=== PATIENT | male | born 1985 | race Caucasian/White ===

== ENCOUNTER 2020-02-07 20:45 | Emergency (ER) | payer BC, SELFPAY ==
--- NOTE | ~2020-02-07 | XR_ITS ---
EXAMINATION: XR abdomen/kub 1V DATE: 02/07/2020 22:10 INDICATION: Right flank pain TECHNIQUE: A supine view of the abdomen on 2 radiographs was obtained. COMPARISON: CT dated 02/07/2020 FINDINGS: The proximal right ureteral stone seen on the prior CT along with a smaller 102 mm stones at the inte rpolar regions of both kidneys are unable to be definitively identified on the plain radiograph. Norm al bowel gas pattern. Calcified nodule at the left lung base consistent with old granulomatous diseas e. IMPRESSION: 1. Bilateral nephrolithiasis evident on prior CT is unable to be identified on the current radiograph s likely due to the small size of the calcifications. Reviewed, dictated and finalized at location A. IMPRESSION: 1. Bilateral nephrolithiasis evident on prior CT is unable to be identified on the current radiographs likely due to the small size of the calcifications.
--- NOTE | ~2020-02-07 | CT_ITS ---
EXAMINATION: CT abdomen pelvis wo con DATE: 02/07/2020 22:03 INDICATION: Immature. Right flank pain. TECHNIQUE: Computed tomography (CT) of the abdomen and pelvis was performed without intravenous contr ast. Automated exposure control and iterative reconstruction technique were employed. The dose-length product was 192.26 mGy-cm. COMPARISON: 12/07/2014 FINDINGS: Calcified nodule in the left lower lobe along with calcified left hilar lymph nodes and small splenic calcification, all consistent with old granulomatous disease. Heart size is normal. No pericardial o r pleural effusion. Liver, decompressed gallbladder, pancreas and bilateral adrenal glands are normal . Bilateral nonobstructing nephrolithiasis with 1-2 mm stones in the interpolar regions of both kidne ys. There is a larger, less dense and more amorphous appearing calcification measuring 6 mm in the le ft kidney which could represent an additional stone or milk of calcium within a cyst. 3 mm nonobstruc ting stone at the proximal right ureter. No hydronephrosis. Bladder is normal. There are few scattere d colonic diverticula without adjacent inflammatory change to suggest diverticulitis. Small bowel and appendix are normal. No free intraperitoneal gas or fluid. No pathologically enlarged abdominal or p elvic lymphadenopathy. Mild lumbar dextroscoliosis with moderate spondylosis at the lumbosacral junct ion. IMPRESSION: 1. Bilateral nephrolithiasis with 3 mm nonobstructing stone at the proximal right ureter. Reviewed, dictated and finalized at location A. IMPRESSION: 1. Bilateral nephrolithiasis with 3 mm nonobstructing stone at the proximal rig ht ureter.
[2020-02-07 20:47] VITALS: BP 166/82; PULSE 70; RESP 16; TEMP 36.6; O2SAT 100
--- NOTE | 2020-02-07 21:11 | ED.ABDPAIN ---
HPI - Abdominal Pain General Chief Complaint: Urogenital-Male Stated Complaint: BLOOD IN URINE/ABD PAIN Time Seen by Provider: 02/07/20 20:57 Source: patient Mode of arrival: ambulatory Limitations: no limitations History of Present Illness HPI narrative: 34 yo male with h/o asthma and kidney stone who presents with c/o right flank pain. Patient states he developed right upper abdominal pain radiating to his right flank yesterday. His pain is intermittent , and it has not required him to taken any medication for pain. He also also noticed that he likely has blood in his urine as his urine has been intermittently darker than normal. He denies nausea, vomiting, diarrhea or fever. He denies cough or sob. He reports he has asthma so when he breaths in occasionally he feels like his throat is constricted . MD elicited complaint: flank pain Onset (ago): day(s) (2) Pain Consistency: intermittent Location: R flank Pain scale (0-10): 4 Quality: dull Radiation: RUQ Relieving factors: movement and other (pain is better with laying flat) Related Data Allergies Allergy/AdvReac Type Severity Reaction Status Date / Time No Known Allergies Allergy Verified 04/14/15 16:58 Review of Systems Review of Systems: All systems reviewed & are unremarkable except as noted in HPI and below Constitutional: Constitutional: Denies chills, Denies fever(s) and Denies weakness Cardiovascular: Cardiovascular: Denies chest pain and Denies radiating jaw, neck or arm pain Respiratory: Respiratory: Denies cough and Denies dyspnea Gastrointestinal: Gastrointestinal: Reports abdominal pain, Denies constipation, Denies diarrhea, Denies nausea and Denies vomiting Genitourinary: Genitourinary: Reports oliguria, Denies dysuria, Denies penile discharge and Denies testicular pain Musculoskeletal: Musculoskeletal: Reports back pain [facility] Past Medical History Medical History (Updated 02/08/20 @ 00:00 by Background Daemon) Kidney stones Surgical History Surgical History (Updated 02/07/20 @ 21:16 by Lee Ann Joseph MD) History of surgery on arm Social History Social History Smoking status: Never smoker Alcohol intake: current Exam Const: General: alert Orientation/consciousness: patient oriented x3 HENMT: Head: normocephalic and atraumatic Face and sinus: face symmetric Eyes: Pupils: Equal, round and reactive pupils present EOM: EOMs intact bilaterally Chest: Chest palpation & inspection: normal inspection of the chest Resp: Effort & Inspection: normal respiratory effort Auscultation: clear to auscultation bilaterally GI: Inspection: non-distended GI Palp: Yes Soft to palpation, Yes Tenderness to palpation present (GI) (RLQ) and No Guarding due to palpation present (GI) : General: Yes no CVA tenderness Skin: General skin exam: normal color Course Reevaluation(s) Reevaluation #1: I have discussed with patient Ct scan showing multiple small stones in bilateral kidneys with small proximal ureteral stone. Patient does not want any pain medication. I discussed discharge plan and treatment. He states he understands he will be discharged after finishing IVF. Date: 02/07/20 Time: 22:36 Vital Signs Vital signs: Vital Signs Temperature 98 F 02/07/20 20:47 Pulse Rate 70 02/07/20 20:47 Respiratory Rate 16 02/07/20 20:47 Blood Pressure 166/82 H 02/07/20 20:47 Pulse Oximetry 100 02/07/20 20:47 Temperature 98.4 F 02/07/20 21:12 Pulse Rate 88 02/07/20 22:50 Respiratory Rate 12 02/07/20 22:50 Blood Pressure 127/88 02/07/20 22:50 Pulse Oximetry 98 02/07/20 22:50 MDM - Abdominal Pain Lab Data Attestation: I reviewed the patient's lab results. Result diagrams: 02/07/20 21:22 02/07/20 21:22 Labs: Lab Results 02/07/20 02/07/20 02/07/20 Range/Units 21:22 21:22 21:23 WBC 8.2 (4.5-10.0) K/mm3 RBC 4.99 (4.6-6.20) M/mm3 Hgb 14.7 (14.0-
[2020-02-07 21:12] VITALS: BP 145/80; PULSE 50; RESP 16; TEMP 36.9; O2SAT 100
[2020-02-07 21:31] LABS: Basophils Absolute Auto 0.1 K/mm3 (0.0-0.1); Basophils Percent Auto 0.7 % (0.2-1.2); Eosinophils Absolute Auto 0.2 K/mm3 (0-0.3); Eosinophils Percent Auto 1.8 % (0-4.4); Hematocrit 44.8 % (42.0-52.0); Hemoglobin 14.7 g/dL (14.0-18.0); Immature Granulocyte Absolute 0.03 K/mm3 (0.00-0.031); Immature Granulocyte Percent A 0.4 % (0-0.5); Lymphocytes Absolute Auto 1.72 K/mm3 (0.9-3.2); Mean Corpuscular HGB Conc 32.8 g/dl (32-36); Mean Corpuscular Hemoglobin 29.5 pg (26-34); Mean Corpuscular Volume 89.8 fl (80-100); Mean Platelet Volume 10.4 fl (7.4-10.4); Monocytes Absolute Auto 0.6 K/mm3 (0.1-0.6); Monocytes Percent Auto 7.7 % (2.6-8.5); Neutrophils Absolute Auto 5.6 K/mm3 (1.3-6.7); Neutrophils Percent Auto 68.4 % (45.5-73.1); Platelet Count Result 245 k/mm3 (150-375); Red Blood Count 4.99 M/mm3 (4.6-6.20); Red Cell Distribution Width 11.9 % (11.5-14.5); White Blood Count 8.2 K/mm3 (4.5-10.0)
[2020-02-07 21:36] LABS: Add Urine Microscopic? YES; Amorphous Sediment Urine Few; Appearance Urine Cloudy (Clear); Bacteria Urine Trace /hpf; Bilirubin Urine Negative (Negative); Blood Urine 2+ (Negative); Color Urine Yellow (Yellow); Glucose Urine UA Negative (Negative); Ketones Urine Negative (Negative); Leukocyte Esterase Ur Negative LEU/UL (Negative); Mucus Urine Few /lpf; Nitrate Urine Negative (Negative); Protein Urine 1+ mg/dL (Negative); RBC Urine >75 /hpf (0-2); Specific Grav Ur 1.018 (1.001-1.035); Urobilinogen Urine Negative mg/dL (<2.0); WBC Urine 0-3 /hpf
[2020-02-07 21:43] LABS: Alanine Aminotransferase 14 U/L (4-50); Albumin Level 4.1 g/dL (3.5-5.1); Alkaline Phosphatase 68 U/L (38-126); Aspartate Amino Transferase 26 U/L (17-59); Bilirubin,Total 0.8 mg/dL (0.2-1.3); Blood Urea Nitrogen 9 mg/dL (9-20); Calcium 8.9 mg/dL (8.4-10.2); Carbon Dioxide 30 mmol/L (22-30); Chloride 103 mmol/L (98-107); Estimated CRCL calculation 81 ml/min; Estimated Glomerular Filt Rate > 60; Glucose 90 mg/dL (75-110); Lipase 342 U/L (23-300); Potassium 3.9 mmol/L (3.4-5.0); Sodium 139 mmol/L (137-145)
[2020-02-07] MEDS: LACTATED RINGERS 1,000 ML 999 ML IV CONT (21:59)
--- NOTE | 2020-02-07 22:13 | PC.NURSE ---
[PT BACK FROM CT
[2020-02-07 22:50] VITALS: BP 127/88; PULSE 88; RESP 12; O2SAT 98
[2020-02-07] MEDS: TAMSULOSIN HCL 0.4 MG CAPSULE PO (22:59)
== END 2020-02-07 22:50 | disposition home or self-care (01) ==
PROVIDERS: Emergency Provider General Practice
DX: N20.2 Calculus of kidney with calculus of ureter (principal); Z87.442 Personal history of urinary calculi
CPT/HCPCS: 36415; 74018; 74176; 80053; 81001; 83690; 85025; 96360; 99284; A9270; J7120

== ENCOUNTER 2020-02-11 10:54 | Outpatient (CLI) | payer BC, SELFPAY ==
--- NOTE | ~2020-02-11 | XR_ITS ---
XR abdomen/kub 1V 02/11/2020 11:10 Indication: Right ureteral stone Procedure: KUB Comparison: 02/07/2020 Findings: There is a right ureteral stone at the L2-3 level measuring approximately 4 mm. There are p elvic phleboliths. Bowel gas pattern is nonobstructive. Lung bases unremarkable. Impression: 1: Right proximal ureteral stone at the L2-3 level measuring 4 mm. Reviewed, dictated and finalized at location A. Impression: 1: Right proximal ureteral stone at the L2-3 level measuring 4 mm.
== END 2020-02-11 10:55 | disposition home or self-care (01) ==
LOC: ANHIMG 10:59
PROVIDERS: PCP Family Medicine Sports Medicine; Visit Provider Urology
DX: N20.1 Calculus of ureter (principal)
CPT/HCPCS: 74018

== ENCOUNTER 2020-02-22 10:15 | Outpatient (CLI) | payer BC, SELFPAY ==
--- NOTE | ~2020-02-22 | XR_ITS ---
XR abdomen/kub 1V 02/22/2020 10:29 INDICATION: Right ureteral stone post lithotripsy TECHNIQUE: KUB COMPARISON: 02/11/2020 FINDINGS: Bowel gas pattern is normal. There is no evidence of free air, mass, organomegaly, ascites or obstruction. There are punctate right renal stones. The bones appear intact. IMPRESSION: 1: Right nephrolithiasis. Reviewed, dictated and finalized at location A. IMPRESSION: 1: Right nephrolithiasis.
== END 2020-02-22 10:16 | disposition home or self-care (01) ==
LOC: ANHIMG 10:17
PROVIDERS: PCP Family Medicine Sports Medicine; Visit Provider Urology
DX: N20.1 Calculus of ureter (principal); N20.0 Calculus of kidney
CPT/HCPCS: 74018

== ENCOUNTER 2020-03-22 00:21 | Outpatient (CLI) | payer BC, SELFPAY ==
[2020-03-22 18:06] LABS: SARS-CoV-2 RNA PCR Negative
== END 2020-03-22 00:22 | disposition home or self-care (01) ==
LOC: ANHCOVIDDT 00:21
PROVIDERS: PCP Family Medicine Sports Medicine; Visit Provider Surgery
DX: Z01.812 Encounter for preprocedural laboratory examination (principal); Z20.828 Contact with and (suspected) exposure to other viral communicable diseases
CPT/HCPCS: 87635; C9803; U0003

== ENCOUNTER 2020-03-24 00:44 | Day surgery (SDC) | payer BC, SELFPAY ==
[2020-03-16 11:38] VITALS: BMI 22.4
--- NOTE | 2020-03-24 11:30 | WPDANESEPPF ---
Anes - Initial Pre Proc Eval Procedure: Operation Date: 03/24/20 13:00 Proposed Procedures p Esophagogastroduodenoscopy & Screening Colonoscopy - Singh Rosales DO Date/Time: 03/24/20 11:30 Surgeon: Singh Rosales DO Pre Op Diagnosis: Acid Reflux/ Neoplasm Screening Patient Data Age: 34 Gender: M Height: 1.83 m Weight: 75 kg Allergies Allergy/AdvReac Type Severity Reaction Status Date / Time No Known Allergies Allergy Verified 04/14/15 16:58 Home Medications Medication Instructions Recorded Confirmed Type No Home Medications 03/16/20 03/16/20 History Patient hx anesthesia problems: none Family hx anesthesia problems: none [facility] Past Medical History Medical History (Updated 03/24/20 @ 11:30 by Que Blandon DO) Diverticulitis Kidney stones Surgical History Surgical History (Updated 02/07/20 @ 21:16 by Lee Ann Joseph MD) History of surgery on arm Social History Social History Smoking status: Never smoker Alcohol intake: current Anes - Eval Final PreProcedure Day of Procedure 03/24/20 11:30 Patient weight: normal Heart: regular rate and rhythm Lungs: clear to auscultation and normal air movement Airway: Mallampati scale class II Neurological: alert and oriented Last oral intake: >/= 8 hours ASA classification: II Emergent: no Anesthetic plan: proceed Anesthesia type and monitoring: general GIVS and standard monitoring Informed Consent: The patient's anesthetic plan and its attendant risks and benefits were discussed with the patient/family/POA. Questions were solicited and answers provided to the satisfaction of the patient/family/POA.
[2020-03-24 11:31] VITALS: BP 133/68; PULSE 77; RESP 16; TEMP 37.2; O2SAT 97
[2020-03-24] MEDS: LACTATED RINGERS 1,000 ML 150 ML IV CONT (11:35)
[2020-03-24] MEDS: BENZOCAINE (*SP) 60 ML SPRAY CAN (HURRICAINE) 1 SPRAY MUCOUS MEM (12:03)
[2020-03-24 12:45] VITALS: BP 95/59; PULSE 66; RESP 18; O2SAT 98
--- NOTE | 2020-03-24 12:48 | PM.IMHP ---
H&P: HPI History of Present Illness Chief complaint: Acid Reflux/ Neoplasm Screening Narrative: Felipe Davidson is a 34 year old male with hx of rectal polyp and freqent GERD. He has noticed heart burn and reflux at night. He had a colonoscopy 5 years ago which showed a rectal polyp. Denies rectal bleeding or fam hx colon cancer. Review of Systems Review of Systems: All systems reviewed & are unremarkable except as noted in HPI and below PMFSH Past Medical History Medical History Diverticulitis Kidney stones Surgical History Surgical History History of surgery on arm Social History Social History Smoking status: Never smoker Alcohol intake: current Meds Home Medications and Allergies Home Medications Medication Instructions Recorded Confirmed Type No Home Medications 03/16/20 03/16/20 History Allergies Allergy/AdvReac Type Severity Reaction Status Date / Time No Known Allergies Allergy Verified 04/14/15 16:58 Vital Signs Vital Signs - 24 hr 03/24/20 11:31 Temperature 37.2 C Pulse Rate 77 Respiratory Rate 16 Blood Pressure 133/68 Pulse Oximetry 97 Exam Const: General: alert; No acute distress Orientation/consciousness: patient oriented x3 Limitations: no limitations HENMT: Head: normocephalic and atraumatic Ears: hearing grossly normal bilaterally General nose exam: Normal external nose present and Normal nares present Mouth: Yes Normal oral and palatal mucosa present and Yes moist mucous membranes Eyes: General: appearance normal, both eyes and all related structures Conjunctivae: conjunctivae normal Sclera: sclerae normal Pupils: Equal, round and reactive pupils present EOM: EOMs intact bilaterally Neck: Neck: normal visual inspection, full ROM, no lymphadenopathy, supple and no JVD Lymphatic: no lymphadenopathy noted Chest: Chest palpation & inspection: normal inspection of the chest Resp: Effort & Inspection: normal respiratory effort and able to speak in complete sentences Auscultation: clear to auscultation bilaterally Percussion: percussion normal Cardio: Jugular venous distension: no JVD Rate: regular rate Rhythm: regular rhythm Heart sounds: S1 normal heart sound present and S2 normal heart sound present Peripheral pulses: Peripheral pulses 2+ throughout GI: Inspection: normal to inspection GI Palp: No abdominal tenderness, Yes Soft to palpation, No Guarding due to palpation present (GI), No Hernia present and No Rebound tenderness present Percussion: Yes normal to percussion Auscultation: normal bowel sounds : General: Yes no CVA tenderness Back/Spine/Pelvis: Back: no CVA tenderness Skin: General skin exam: normal color and dry skin Neuro: General: patient oriented x3, gait normal, moves all extremities, no focal motor deficits and CN's II-XI intact bilaterally Cranial nerves: Yes Equal, round and reactive pupils present Speech: normal speech Extrem: General: normal to inspection and capillary refill normal Assessment and Plan Assessment and plan (1) GERD (gastroesophageal reflux disease): Code(s): K21.9 - Gastro-esophageal reflux disease without esophagitis Status: Acute Assessment and Plan: I have recommended EGD and Colonoscopy. I have discussed the procedure, risks, benefits, and alternatives with the patient. All questions answered. (2) Hx of rectal polypectomy: Code(s): Z98.890 - Other specified postprocedural states; Z87.19 - Personal history of other diseases of the digestive system Status: Acute
[2020-03-24 12:55] VITALS: BP 98/64; PULSE 54; RESP 20; O2SAT 97
[2020-03-24 13:05] VITALS: BP 107/74; PULSE 54; RESP 20; O2SAT 98
== END 2020-03-24 13:37 | disposition home or self-care (01) ==
PROVIDERS: PCP Family Medicine Sports Medicine; Visit Provider Surgery
PROC: 0DJ08ZZ Inspection of Upper Intestinal Tract, Via Natural or Artificial Opening Endoscopic (ICD-10-PCS; CPT 43235; principal; 2020-03-24 13:00)
DX: Z12.11 Encounter for screening for malignant neoplasm of colon (principal); D12.0 Benign neoplasm of cecum; D12.5 Benign neoplasm of sigmoid colon; K57.30 Diverticulosis of large intestine without perforation or abscess without bleeding; K21.0 Gastro-esophageal reflux disease with esophagitis
CPT/HCPCS: 45385; 45380; 43239; 87081; 88305; 88313; J2704; J7120

== ENCOUNTER 2021-11-02 12:00 | Emergency (ER) | payer BC, SELFPAY ==
[2021-11-02 12:07] VITALS: BP 130/79; PULSE 72; RESP 16; TEMP 36.6; O2SAT 100
--- NOTE | 2021-11-02 12:44 | ED.URI ---
HPI - URI/Sore Throat General Chief Complaint: Upper Respiratory Infection Stated Complaint: ear pain cough and chest tight Time Seen by Provider: 11/02/21 12:16 Source: patient and RN notes reviewed Mode of arrival: ambulatory Limitations: no limitations History of Present Illness HPI Narrative: Patient presents today complaining of right ear pain, fever, sweats, cough, dizziness. Symptoms have been present for 5 days and seem to be worsening. Denies shortness of breath or chest pain. He has been taking DayQuil and Tylenol without much relief. Patient also started a Z-Nguyễn 5 days ago and states that that has not helped with his symptoms either. Denies any known exposures. He has been vaccinated against influenza and COVID-19. MD elicited complaint: fever, cough and other (Ear pain) Related Data Allergies Allergy/AdvReac Type Severity Reaction Status Date / Time No Known Allergies Allergy Verified 05/17/20 10:37 Review of Systems Review of Systems: CONSTITUTIONAL: Denies body aches, chills.+ Fever, sweats EYES: Denies visual changes, redness, or discharge. ENT: Denies rhinorrhea, congestion, sore throat. + Ear pain. CARDIOVASCULAR: Denies chest pain, palpitations, or edema. RESPIRATORY: Denies dyspnea.+ Cough GASTROINTESTINAL: Denies abdominal pain, nausea, vomiting, or diarrhea. GENITOURINARY: Denies dysuria or hematuria. SKIN: Denies rash, itching, or wounds. MUSCULOSKELETAL: Denies back pain, joint pain, or myalgia. NEUROLOGIC: Denies headache, numbness, tingling, or weakness.+ Dizziness PSYCH: Denies depression or anxiety. [facility] Past Medical History Medical History Diverticulitis Kidney stones Surgical History Surgical History History of surgery on arm Social History Social History Smoking status: Never smoker Alcohol intake: current Comments At time of signature, I have reviewed and agree with nursing past medical, surgical, social and family history unless otherwise noted. Please see nursing chart for further information. There is no relevant family history pertinent to the presenting complaint Exam Narrative: GENERAL: Mildly ill-appearing, well-nourished, and in no acute distress. HEAD: Normocephalic, atraumatic. EYES: EOMI. No redness or drainage. Conjunctivae normal. ENT: Mucous membranes pink and moist. Nares clear. No rhinorrhea. Left TM normal. Right TM slightly injected. Throat normal. Uvula midline. NECK: Normal AROM. Supple. No lymphadenopathy. CHEST: No respiratory distress. Clear to auscultation. HEART: Regular rate and rhythm. No murmur appreciated. Normal peripheral pulses. EXTREMITIES: Normal range of motion. No edema. SKIN: Warm, dry, no rash. Capillary refill normal. Normal skin turgor. NEURO: No focal deficits. Alert and oriented x3. Gait steady. PSYCH: Normal affect. No signs of depression or anxiety. Course Course Level of Care: Express Care Visit Vital Signs Vital signs: Vital Signs Temperature 97.9 F 11/02/21 12:07 Pulse Rate 72 11/02/21 12:07 Respiratory Rate 16 11/02/21 12:07 Blood Pressure 130/79 11/02/21 12:07 Pulse Oximetry 100 11/02/21 12:07 Temperature 97.9 F 11/02/21 12:07 Pulse Rate 72 11/02/21 12:07 Respiratory Rate 16 11/02/21 12:07 Blood Pressure 130/79 11/02/21 12:07 Pulse Oximetry 100 11/02/21 12:07 Reviewed. Pt has been instructed to follow up with his PCP regarding his elevated blood pressure today. MDM - URI/Sore Throat Differential Diagnosis Differential diagnosis: Likely upper respiratory infection, viral infection, influenza and other (COVID-19) Lab Data Attestation: I reviewed the patient's lab results. Labs: Lab Results 11/02/21 Range/Units 12:26 POC SARS CoV-2 Ag Positive (Negative) Influenza A Scr
== END 2021-11-02 12:50 | disposition home or self-care (01) ==
PROVIDERS: Emergency Provider Nurse Practitioner; PCP Family Medicine Sports Medicine
DX: U07.1 COVID-19 (principal)
CPT/HCPCS: 87426; 87804; 99213; C9803; G0463

== ENCOUNTER 2022-07-26 01:27 | Day surgery (SDC) | payer BC, SELFPAY ==
[2022-07-19 13:03] VITALS: BMI 23.3
--- NOTE | 2022-07-19 13:10 | PC.NURSE ---
Report to the Outpatient Waiting Room, entrance under the green pavilion located off [facility], at time 0730 on date 07/26/22. OR Time: 0930. Time changes happen often and if your time is changed the preop area will call you the afternoon before. - You and your visitor will be asked to self-screen and do not enter if you have any COVID symptoms. - Only one visitor and NO children visitors are allowed at this time. - The patient visitor is requested to leave or wait in car when not with patient due to restrictions. - A mask is required within the hospital. Patients may have clear liquids (water, carbonated beverages, clear teas, apple juice) until 3 hours prior to surgery with a maximum of 20 ounces. - No food from midnight until time of surgery Take the following medications with a SIP of water the morning of surgery: N/A Medications to discontinue per physician: N/A Date to take last dose: N/A Please no make-up, nail portuguese, hairspray, perfume, deodorant, or body powder the day of surgery. No jewelry (including any body piercings) or valuables the day of surgery, leave them at home. Please take a shower or bath the night before, or the morning of, surgery with an antibacterial soap. Wear comfortable, loose fitting clothing. - Jewelry must be removed prior to entering the operating room. Rings and piercings that are not removed may be cut off. - The hospital will not accept responsibility for valuables. - Please leave all valuables, including medications, at home the day of surgery. If you are going home after surgery, a licensed pile driver operator barge mounted must drive you home. - NO public transportation without another adult. - We recommend that an adult stay with you for 24 hours following discharge. - We also recommend that you do not drive, make important decision, drink alcoholic beverages, or take any drugs that were not prescribed by your health care provider for at least 24 hours after your discharge time. Follow any additional instructions given to you from your surgeon. If you or anyone in your household have experienced Covid symptoms in the past week, please notify your surgeon or the nurse liaison at the phone number below for possible testing. Telephone instructions given to PT - RADHA CABALLERO and asked if any additional questions and then verbalized understanding. Patient advised to call surgeon office or pre surgery nurse liaison [phone] if any additional questions.
--- NOTE | ~2022-07-26 | XR_ITS ---
EXAMINATION: XR surgery orthopedic DATE: 07/26/2022 10:18 INDICATION: Right foot surgery TECHNIQUE: A single dorsal plantar image of the right forefoot was obtained during procedure performe d by Dr. Tobias. Radiologist was not present for the imaging or procedure. The amount of fluoroscop y time used during this procedure was 0.1 minutes. COMPARISON: None. FINDINGS: Resection of the head of the fifth proximal phalanx with widening of the fifth proximal interphalange al joint space. There is irregular contour to the skin lateral to the osteotomy likely representing t he site of the skin incision. Alignment is normal. No fractures. Remaining joint spaces are normal. IMPRESSION: 1. Osteotomy at the head of the right fifth proximal phalanx. Reviewed, dictated and finalized at location A.
--- NOTE | 2022-07-26 07:10 | WPDHPUPDATE1 ---
History and Physical Update Update Date/Time: 07/26/22 07:10 History and Physical has been reviewed, including an updated exam of the patient. There are NO changes in the patient's condition. Risks, benefits, and alternatives have been discussed and questions answered. Patient agrees to proceed with procedure.
[2022-07-26] MEDS: LACTATED RINGERS 1,000 ML 30 ML IV CONT (07:54)
--- NOTE | 2022-07-26 07:59 | P.PNAN_ITS ---
Anes - Initial Pre Proc Eval Procedure: Operation Date: 07/26/22 09:30 Proposed Procedures p Arthroplasty Fifth Digit Right Foot, Skin Plasty Fifth Digit Right Foot - Michelet Tobias JR, MD Date/Time: 07/26/22 07:59 Surgeon: Michelet Tobias JR, MD Pre Op Diagnosis: hammer toe 5th digit right foot Patient Data Age: 36 Gender: M Height: 1.83 m Weight: 78 kg Allergies Allergy/AdvReac Type Severity Reaction Status Date / Time sulfamethoxazole Allergy Rash Verified 07/19/22 13:02 [From Bactrim] trimethoprim [From Bactrim] Allergy Rash Verified 07/26/22 07:47 Home Medications Medication Instructions Recorded Confirmed Type citalopram 10 mg tablet 10 mg PO HS 07/19/22 07/26/22 History Patient hx anesthesia problems: none Family hx anesthesia problems: none Results Review: All pre-operative results and documents have been reviewed as part of the pre- operative evaluation. REPLACED BY [facility] Past Medical History Medical History Anxiety Asthma Diverticulitis Kidney stones Surgical History Surgical History History of surgery on arm Family History Family History Father Brain cancer Social History Social History Smoking status: Never smoker Alcohol intake: current Alcohol use details: RARE Substance use: never Substance use type: does not use Living arrangements: with family Gender identity (if verbalized by the patient): Male Spiritual care concerns: No Anes - Eval Final PreProcedure Day of Procedure 07/26/22 07:59 Patient weight: normal Heart: regular rate and rhythm Lungs: clear to auscultation Airway: Mallampati scale class II Neurological: alert and oriented Last oral intake: >/= 8 hours ASA classification: II Emergent: no Anesthetic plan: proceed Anesthesia type and monitoring: general GIVS and standard monitoring Results Review: All pre-operative results and documents have been reviewed as part of the pre- operative evaluation. Informed Consent: The patient's anesthetic plan and its attendant risks and benefits were di scussed with the patient/family/POA. Questions were solicited and answers provided to the satisfaction of the patient/family/POA.
[2022-07-26 08:09] VITALS: BP 121/76; PULSE 54; RESP 16; TEMP 36.6; O2SAT 100
[2022-07-26] MEDS: ceFAZolin 2 GM/D5W 50 ML 2 GM/50 ML BAG IVPB (09:43)
[2022-07-26] MEDS: KETOROLAC 30 MG/ML VIAL (*BKC) IV PUSH (10:02)
[2022-07-26] MEDS: LIDOCAINE HCL 2% PF INJ 5 ML VIAL 20 ML INFILTRATE (10:07)
[2022-07-26 10:18] VITALS: BP 110/65; PULSE 67; RESP 16; O2SAT 99
--- NOTE | 2022-07-26 10:41 | W.PM.PROC2 ---
Procedure Note - Detailed Date of Procedure 07/26/22 Pre-op Diagnosis hammer toe 5th digit right foot Post-op Diagnosis Same Procedure Performed 1. Arthroplasty of the proximal interphalangeal joint fifth digit right foot 2. 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 Description of Procedure Under mild sedation, the patient was brought in to the operating room, placed on the operating table in the supine position.? A pneumatic ankle tourniquet was placed about the patient's ankle. Following monitored anesthesia care, local anesthesia was obtained about the foot utilizing? mL of a 1:1 mixture of 2% Lidocaine plain and 0.5% Marcaine plain with a modified proximal Marcelo block proximal to each corresponding digits. The foot was then scrubbed, prepped, and draped in the usual aseptic manner.? An Esmarch bandage was then used to exsanguinate the patient's foot and the pneumatic ankle tourniquet was then inflated. Attention was directed to the fifth digit where two converging semi-elliptical incisions were made about the dorsal proximal interphalangeal joint of the fifth digit. The incisions were ortiented from distal medial to proximal lateral. The ellipse of skin was excised in toto. All bleeders were cauterized as necessary. The proximal interphalangeal joint was now identified. A transverse tenotomy was created dorsal to the proximal interphalangeal joint, next the head of the proximal phalanx was carefully freed from the capsular and ligamentous structures. The head of the proximal phalanx was resected with an oscillating saw blade and placed on the back table. Care was taken to make sure that adequate bone was resected with Fluoroscopy, also the digit was noted to sit in a more rectus position with the adductovarus deformity reduced. I reapproximated the extensor tendon with 4.0 Vicryl. Next I reapproximated the skin with 4.0 Prolene in Horizontal mattress suture fashion technique in order to maintain the position of the digit in a rectus position. The skin plasty adequately reduced the deformity to the digit. The 5th digit was splinted in a rectus position with 1/2 inch steri strips. Upon completion of the procedure, the incision was dressed with Adaptic, 4x4s, Kerlix, and Coban.? The pneumatic ankle tourniquet was then deflated and a prompt hyperemic response was noted to all digits of the foot.? A surgical shoe was then applied. ? The patient did very well with the procedure and the anesthesia.? The patient was transferred to the recovery room with vital signs stable and vascular status intact to all toes of the affected foot.? Following a period of postoperative monitoring, the patient will be discharged home on the following written and oral postoperative instructions: 1. The patient should keep the dressing clean, dry, and intact.? Use a cast protector bag with showers. 2. The patient will be protected with surgical shoe. 3. Patient should ice and elevate the affected foot when at rest. 4. The patient is to contact Dr. Tobias for all postop care and if any problems arise. 5. Prescriptions were written for Percocet 5/325mg? to be taken 1 p.o. 6 hours as needed for severe pain.? Estimated Blood Loss -1.0 Packing No Pathology None sent Complications No immediate complications Condition Stable Disposition Same day
[2022-07-26 10:45] VITALS: BP 110/65; PULSE 49; RESP 16; O2SAT 98
[2022-07-26 11:15] VITALS: BP 112/73; PULSE 45; RESP 16
[2022-07-26 11:37] VITALS: BP 106/75; PULSE 43; RESP 16
== END 2022-07-26 11:39 | disposition home or self-care (01) ==
PROVIDERS: PCP Family Medicine Sports Medicine; Visit Provider Podiatrist Foot & Ankle Surgery
PROC: (CPT 28285; principal; 2022-07-26 09:30)
DX: M20.41 Other hammer toe(s) (acquired), right foot (principal); F41.9 Anxiety disorder, unspecified; J45.909 Unspecified asthma, uncomplicated; L85.9 Epidermal thickening, unspecified
CPT/HCPCS: 28285; 99199; J0690; J1100; J1170; J1885; J2250; J2704; J3010; J7120

== ENCOUNTER 2023-04-24 00:53 | Day surgery (SDC) | payer BC, SELFPAY ==
[2023-04-01 15:04] VITALS: BMI 24.4
[2023-04-24 09:26] VITALS: BP 118/80; PULSE 50; RESP 18; TEMP 36.4; O2SAT 98
[2023-04-24] MEDS: LACTATED RINGERS 1,000 ML 150 ML IV CONT (09:38)
--- NOTE | 2023-04-24 10:12 | PM.IMHP ---
H&P: HPI History of Present Illness Date/Time: 04/24/23 10:12 Chief Complaint: History of colon polyps Narrative: This is a 37-year-old man who presents for colonoscopy. His last colonoscopy was 3 years ago and a large sigmoid polyp was removed at that time. He denies any hematochezia or melena. He does have a history of diverticulitis but has not had an episode in 8 years. He denies any family history of colon cancer. Review of Systems Review of Systems: All systems reviewed & are unremarkable except as noted in HPI and below Constitutional: Constitutional: Denies chills, Denies fever(s), Denies headache(s) and Denies weight loss Eyes: Eyes: Denies change in vision ENT: Denies dizziness, Denies headache(s), Denies neck mass and Denies throat swelling Cardiovascular: Cardiovascular: Denies chest pain, Denies lightheadedness and Denies dyspnea Respiratory: Respiratory: Denies cough, Denies dyspnea and Denies wheezing Gastrointestinal: Gastrointestinal: Denies abdominal pain, Denies change in bowel habits, Denies nausea and Denies vomiting Genitourinary: Genitourinary: Denies hematuria and Denies dysuria Musculoskeletal: Musculoskeletal: Reports as per HPI Integumentary/Breasts: Skin/Breast: Reports as per HPI Neurologic: Denies dizziness and Denies headache(s) Allergic/Immunologic: Allergic/Immunologic: Denies throat swelling and Denies wheezing PMFSH Past Medical History Medical History Anxiety Asthma Diverticulitis Kidney stones Surgical History Surgical History History of surgery on arm Family History Family History Father Brain cancer Social History Social History Smoking status: Never smoker Alcohol intake: current Alcohol use details: RARE Substance use: never Substance use type: does not use Living arrangements: with family Occupation/Education: occupation Gender identity (if verbalized by the patient): Male Spiritual care concerns: No Meds Home Medications and Allergies Home Medications Medication Instructions Recorded Confirmed Type citalopram 10 mg tablet 10 mg PO HS 07/19/22 04/01/23 History Allergies Allergy/AdvReac Type Severity Reaction Status Date / Time sulfamethoxazole Allergy Rash Verified 04/24/23 09:25 [From Bactrim] trimethoprim [From Bactrim] Allergy Rash Verified 04/24/23 09:25 Vital Signs Vital Signs - 24 hr 04/24/23 09:26 Temperature 36.4 C Pulse Rate 50 L Respiratory Rate 18 Blood Pressure 118/80 Pulse Oximetry 98 Oxygen Delivery Room Air Exam Const: General: no acute distress and alert Orientation/consciousness: patient oriented x3 HENMT: Head: normocephalic and atraumatic Ears: hearing grossly normal bilaterally Face/Nose/Sinus: Normal nares present Mouth: Yes Normal oral and palatal mucosa present Eyes: Periorbital: periorbital findings normal Sclera: sclerae normal EOM: EOMs intact bilaterally Neck: Neck: normal visual inspection, no lymphadenopathy and trachea midline Chest: Chest palpation & inspection: normal inspection of the chest Resp: Effort & Inspection: normal respiratory effort Auscultation: clear to auscultation bilaterally Cardio: Jugular venous distension: no JVD Rate: regular rate Rhythm: regular rhythm Heart sounds: S1 normal heart sound present and S2 normal heart sound present Peripheral pulses: Peripheral pulses 2+ throughout GI: Inspection: normal to inspection GI Palp: Yes Soft to palpation, No Tenderness to palpation present (GI), No Guarding due to palpation present (GI) and No Rebound tenderness present Percussion: Yes normal to percussion Auscultation: normal bowel sounds : General: Yes no CVA tenderness Back/Spine/Pelvis: Back: no CV
--- NOTE | 2023-04-24 10:16 | WPDANESEPPF ---
Anes - Initial Pre Proc Eval Procedure: Operation Date: 04/24/23 10:45 Proposed Procedures p Colonoscopy - Singh Rosales DO Date/Time: 04/24/23 10:16 Surgeon: Singh Rosales DO Pre Op Diagnosis: hx colon polyps Patient Data Age: 37 Gender: M Height: 1.8 m Weight: 82.4 kg Last Vital Signs Temp 97.6 F 04/24/23 09:26 Pulse 50 L 04/24/23 09:26 Resp 18 04/24/23 09:26 BP 118/80 04/24/23 09:26 Pulse Ox 98 04/24/23 09:26 O2 Del Method Room Air 04/24/23 09:26 Allergies Allergy/AdvReac Type Severity Reaction Status Date / Time sulfamethoxazole Allergy Rash Verified 04/24/23 09:25 [From Bactrim] trimethoprim [From Bactrim] Allergy Rash Verified 04/24/23 09:25 Home Medications Medication Instructions Recorded Confirmed Type citalopram 10 mg tablet 10 mg PO HS 07/19/22 04/01/23 History Patient hx anesthesia problems: none Family hx anesthesia problems: none Results Review: All pre-operative results and documents have been reviewed as part of the pre-operative evaluation. [facility] Past Medical History Medical History Anxiety Asthma Diverticulitis Kidney stones Surgical History Surgical History History of surgery on arm Family History Family History Father Brain cancer Social History Social History Smoking status: Never smoker Alcohol intake: current Alcohol use details: RARE Substance use: never Substance use type: does not use Living arrangements: with family Occupation/Education: occupation Gender identity (if verbalized by the patient): Male Spiritual care concerns: No Anes - Eval Final PreProcedure Day of Procedure 04/24/23 10:16 Patient weight: normal Heart: regular rate and rhythm Lungs: clear to auscultation Airway: Mallampati scale class II Neurological: alert and oriented Last oral intake: >/= 8 hours ASA classification: II Emergent: no Anesthetic plan: proceed Anesthesia type and monitoring: general GIVS and standard monitoring Results Review: All pre-operative results and documents have been reviewed as part of the pre-operative evaluation. Informed Consent: The patient's anesthetic plan and its attendant risks and benefits were discussed with the patient/family/POA. Questions were solicited and answers provided to the satisfaction of the patient/family/POA.
[2023-04-24 10:45] VITALS: BP 98/65; PULSE 47; RESP 13; O2SAT 96
[2023-04-24 10:55] VITALS: BP 103/67; PULSE 44; RESP 13; O2SAT 98
[2023-04-24 11:05] VITALS: BP 107/71; PULSE 45; RESP 14; O2SAT 100
== END 2023-04-24 11:12 | disposition home or self-care (01) ==
PROVIDERS: PCP Family Medicine Sports Medicine; Visit Provider Surgery
PROC: 0DJD8ZZ Inspection of Lower Intestinal Tract, Via Natural or Artificial Opening Endoscopic (ICD-10-PCS; CPT 45378; principal; 2023-04-24 10:45)
DX: Z12.11 Encounter for screening for malignant neoplasm of colon (principal); K57.30 Diverticulosis of large intestine without perforation or abscess without bleeding; K64.8 Other hemorrhoids; Z86.010 Personal history of colon polyps; F41.9 Anxiety disorder, unspecified
CPT/HCPCS: 45378; J2704; J7120

== ENCOUNTER 2024-02-20 00:36 | Day surgery (SDC) | payer BC, SELFPAY ==
[2024-02-12 13:48] VITALS: BMI 22.2
--- NOTE | 2024-02-12 13:52 | PC.NURSE ---
Report to the Outpatient Waiting Room, entrance under the green pavilion located off [facility], at time 0930 on date 02/20/24. Planned Procedure Time: 1130. Time changes happen often and if your time is changed the preop area will call you the afternoon before. - You and your visitor will be asked to self-screen and do not enter if you have any COVID symptoms. - A mask is optional within the hospital at this time. Patients may have clear liquids (water, carbonated beverages, clear teas, apple juice) until 3 hours prior to surgery with a maximum of 20 ounces. - No food from midnight until time of surgery Take the following medications with a SIP of water the morning of surgery: NONE DO NOT STOP ANY OF YOUR OTHER PRESCRIPTION MEDICATIONS PRIOR TO SURGERY ?EXCEPT THE FOLLOWING Medications to discontinue per physician: N/A Date to take last dose: N/A Please no make-up, nail croatian, hairspray, perfume, deodorant, or body powder the day of surgery. No jewelry (including any body piercings) or valuables the day of surgery, leave them at home. Please take a shower or bath the night before, or the morning of, surgery with an antibacterial soap. Wear comfortable, loose fitting clothing. - Jewelry must be removed prior to entering the operating room. Rings and piercings that are not removed may be cut off. - The hospital will not accept responsibility for valuables. - Please leave all valuables, including medications, at home the day of surgery. If you are going home after surgery, a licensed bobcat driver/labor must drive you home. - NO public transportation without another adult if you receive anesthesia. - We recommend that an adult stay with you for 24 hours following discharge. - We also recommend that you do not drive, make important decision, drink alcoholic beverages, or take any drugs that were not prescribed by your health care provider for at least 24 hours after your discharge time. Follow any additional instructions given to you from your surgeon. If you or anyone in your household have experienced Covid symptoms in the past week, please notify your surgeon or the nurse liaison at the phone number below for possible testing. Telephone instructions given to PT Lor GARCIA and asked if any additional questions and then verbalized understanding. Patient advised to call surgeon office or pre surgery nurse liaison [phone] if any additional questions.
--- NOTE | ~2024-02-20 | XR_ITS ---
EXAMINATION: XR surgery orthopedic DATE: 02/20/2024 12:05 INDICATION: Left fifth digit hammertoe. TECHNIQUE: A single intraoperative fluoroscopic view of left foot was obtained. I was not present. Fl uoroscopy exposure time was 1 second. COMPARISON: None. FINDINGS: There are changes of resection of head of fifth proximal phalanx. IMPRESSION: 1. Resection of head of fifth proximal phalanx. Reviewed, dictated and finalized at location A.
[2024-02-20 10:26] VITALS: BP 111/77; PULSE 48; RESP 16; TEMP 37; O2SAT 100
[2024-02-20] MEDS: LACTATED RINGERS 1,000 ML 30 ML IV CONT (10:33)
--- NOTE | 2024-02-20 11:22 | W.PM.PROC2 ---
Procedure Note - Detailed Date of Procedure 02/20/24 Pre-op Diagnosis Hammer toe 5th digit left foot Post-op Diagnosis Same Procedure Performed 1. Arthroplasty 5th digit left foot 2. 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 Description of Procedure Surgery began in the following matter: Under mild sedation, the patient was brought in to the operating room, placed on the operating table in the supine position.? A pneumatic ankle tourniquet was placed about the patient's left ankle. Following monitored anesthesia care, local anesthesia was obtained about the foot utilizing? mL of a 1:1 mixture of 2% Lidocaine plain and 0.5% Marcaine plain with a modified proximal Marcelo block proximal to each corresponding digits. The foot was then scrubbed, prepped, and draped in the usual aseptic manner.? An Esmarch bandage was then used to exsanguinate the patient's foot and the pneumatic ankle tourniquet was then inflated. Attention was directed to the fifth digit where two converging semi-elliptical incisions were made about the dorsal proximal interphalangeal joint of the fifth digit. The incisions were ortiented from distal medial to proximal lateral. The ellipse of skin was excised in toto. All bleeders were cauterized as necessary. The proximal interphalangeal joint was now identified. A transverse tenotomy was created dorsal to the proximal interphalangeal joint, next the head of the proximal phalanx was carefully freed from the capsular and ligamentous structures. The head of the proximal phalanx was resected with an oscillating saw blade and placed on the back table. Care was taken to make sure that adequate bone was resected with Fluoroscopy, also the digit was noted to sit in a more rectus position with the adductovarus deformity reduced. I reapproximated the extensor tendon with 4.0 Vicryl. Next I reapproximated the skin with 4.0 Prolene in Horizontal mattress suture fashion technique in order to maintain the position of the digit in a rectus position. The skin plasty adequately reduced the deformity to the digit. The 5th digit was splinted in a rectus position with 1/2 inch steri strips. Upon completion of the procedure, the incision was dressed with Adaptic, 4x4s, Kerlix, and Coban.? The pneumatic ankle tourniquet was then deflated and a prompt hyperemic response was noted to all digits of the foot.? A surgical shoe was then applied. ? The patient did very well with the procedure and the anesthesia.? The patient was transferred to the recovery room with vital signs stable and vascular status intact to all toes of the affected foot.? Following a period of postoperative monitoring, the patient will be discharged home on the following written and oral postoperative instructions: 1. The patient should keep the dressing clean, dry, and intact.? Use a cast protector bag with showers. 2. The patient will be protected with surgical shoe. 3. Patient should ice and elevate the affected foot when at rest. 4. The patient is to contact Dr. Tobias for all postop care and if any problems arise. 5. Prescriptions were written for Percocet 5/325mg? to be taken 1 p.o. 6 hours as needed for severe pain.? Implants None Estimated Blood Loss 1 Packing No Pathology None sent Complications No immediate complications Condition Stable Disposition Same day
--- NOTE | 2024-02-20 11:23 | WPDANESEPPF ---
Anes - Initial Pre Proc Eval Procedure: Operation Date: 02/20/24 11:30 Proposed Procedures p Arthroplasty of Fifth Digit Left Foot, Skinplasty Fifth Digit Left Foot - Michelet Tobias JR, MD Date/Time: 02/20/24 11:23 Surgeon: Michelet Tobias JR, MD Pre Op Diagnosis: hammer toe 5th digit left foot Patient Data Age: 38 Gender: M Height: 1.83 m Weight: 74.5 kg Last Vital Signs Temp 98.6 F 02/20/24 10:26 Pulse 48 L 02/20/24 10:26 Resp 16 02/20/24 10:26 BP 111/77 02/20/24 10:26 Pulse Ox 100 02/20/24 10:26 O2 Del Method Room Air 02/20/24 10:26 Allergies Allergy/AdvReac Type Severity Reaction Status Date / Time sulfamethoxazole Allergy Rash Verified 02/20/24 10:08 [From Bactrim] trimethoprim [From Bactrim] Allergy Rash Verified 02/20/24 10:08 Home Medications Medication Instructions Recorded Confirmed Type citalopram 10 mg tablet 10 mg PO HS 07/19/22 02/12/24 History Patient hx anesthesia problems: none Family hx anesthesia problems: none Results Review: All pre-operative results and documents have been reviewed as part of the pre-operative evaluation. [facility] Past Medical History Medical History Anxiety Asthma Diverticulitis Kidney stones Surgical History Surgical History History of surgery on arm Family History Family History Father Brain cancer Social History Social History Smoking status: Never smoker Alcohol intake: current Alcohol use details: RARE Substance use: never Substance use type: does not use Living arrangements: with family Occupation/Education: occupation Gender identity (if verbalized by the patient): Male Spiritual care concerns: No Anes - Eval Final PreProcedure Day of Procedure 02/20/24 11:23 Patient weight: normal Heart: regular rate and rhythm Lungs: clear to auscultation Airway: Mallampati scale class II Neurological: alert and oriented Last oral intake: >/= 8 hours ASA classification: II Emergent: no Anesthetic plan: proceed Anesthesia type and monitoring: general GIVS and standard monitoring Results Review: All pre-operative results and documents have been reviewed as part of the pre-operative evaluation. One time seizure 2014 while hospitalized for diverticulits, none since, deemed due to electrolyte disturbance. Informed Consent: The patient's anesthetic plan and its attendant risks and benefits were discussed with the patient/family/POA. Questions were solicited and answers provided to the satisfaction of the patient/family/POA.
[2024-02-20] MEDS: ceFAZolin 2 GM/D5W 50 ML 2 GM/50 ML BAG IVPB (11:35)
[2024-02-20] MEDS: LIDOCAINE HCL 2% PF INJ 5 ML VIAL 10 ML INFILTRATE (11:37)
[2024-02-20] MEDS: BUPivacaine HCL 0.5% 10 ML AMP INFILTRATE (11:38)
[2024-02-20 12:05] VITALS: BP 101/68; PULSE 64; RESP 14; O2SAT 97
[2024-02-20 12:35] VITALS: BP 105/71; PULSE 40
[2024-02-20] MEDS: oxyCODONE HCL (*CRX) 5 MG TAB IR PO (12:59)
[2024-02-20 13:05] VITALS: BP 112/73; PULSE 40
[2024-02-20] MEDS: diphenhydrAMINE HCl INJ 50 MG/ML VIAL 12.5 MG IV PUSH (13:24)
[2024-02-20 13:35] VITALS: BP 104/73; PULSE 51; RESP 16
--- NOTE | 2024-03-05 08:22 | WPDHPUPDATE1 ---
History and Physical Update Update Date/Time: 02/20/24 08:22 History and Physical has been reviewed, including an updated exam of the patient. There are NO changes in the patient's condition. Risks, benefits, and alternatives have been discussed and questions answered. Patient agrees to proceed with procedure.
== END 2024-02-20 13:55 | disposition home or self-care (01) ==
PROVIDERS: PCP Family Medicine; Visit Provider Podiatrist Foot & Ankle Surgery
PROC: (CPT 28285; principal; 2024-02-20 11:30)
DX: M20.42 Other hammer toe(s) (acquired), left foot (principal)
CPT/HCPCS: 28285; 99199; A9270; J0690; J1100; J1200; J2250; J2405; J2704; J3010; J7120

== ENCOUNTER 2024-03-12 22:03 | Emergency (ER) | payer BC, SELFPAY ==
--- NOTE | ~2024-03-12 | XR_ITS ---
EXAMINATION: XR finger 3rd RT min 2V DATE: 03/12/2024 22:47 INDICATION: Right hand third digit laceration. TECHNIQUE: 3 views of right hand third digit were obtained. COMPARISON: None. FINDINGS: Bone alignment is normal. No fracture. Joint spaces are normal. IMPRESSION: 1. No fracture or radiopaque foreign body. Reviewed, dictated and finalized at location E.
[2024-03-12 22:11] VITALS: BP 131/79; PULSE 50; RESP 20; O2SAT 98
[2024-03-12 22:16] VITALS: TEMP 37
[2024-03-12] MEDS: TETANUS,DIPHTHERIA,AC PERTUSSIS ADULT (0.5 ML) BOOSTRIX IM (22:52)
--- NOTE | 2024-03-12 23:06 | ED.WOUNDLAC ---
HPI - Wound/Laceration General Chief Complaint: Wound/Laceration Stated Complaint: laceration right middle finger Time Seen by Provider: 03/12/24 22:18 Source: patient Mode of arrival: ambulatory Limitations: no limitations History of Present Illness HPI narrative: Patient is a 38-year-old male who presents the ED with report of laceration to his right 3rd digit. Patient reports he accidentally slipped while using a kitchen knife and cut himself. Sustained a laceration to his finger. Denies numbness or significant pain. Tetanus status unknown. Related Data Home Medications Medication Instructions Recorded Confirmed citalopram 10 mg tablet 10 mg PO HS 07/19/22 02/12/24 Allergies Allergy/AdvReac Type Severity Reaction Status Date / Time acetaminophen [From Percocet] Allergy Itching Verified 03/12/24 22:14 oxycodone [From Percocet] Allergy Itching Verified 03/12/24 22:14 sulfamethoxazole Allergy Rash Verified 02/20/24 10:08 [From Bactrim] trimethoprim [From Bactrim] Allergy Rash Verified 02/20/24 10:08 Review of Systems Review of Systems: CONSTITUTIONAL: Denies fever, chills, or sweats. SKIN: See HPI NEUROLOGIC: Denies headache, dizziness, numbness, or weakness. All systems reviewed & are unremarkable except as noted in HPI and below PMFSH Past Medical History Medical History Anxiety Asthma Diverticulitis Kidney stones Surgical History Surgical History History of surgery on arm Family History Family History Father Brain cancer Social History Social History Smoking status: Never smoker Alcohol intake: current Alcohol use details: RARE Substance use: never Substance use type: does not use Living arrangements: with family Occupation/Education: occupation Gender identity (if verbalized by the patient): Male Spiritual care concerns: No Exam Narrative: GENERAL: Well appearing, well-nourished, non-toxic, in no acute distress. HEAD: Normocephalic, atraumatic. RESPIRATORY: Airway patent, respirations nonlabored. CARDIOVASCULAR: Regular rate and rhythm. Radial pulses intact and easily palpable MUSCULOSKELETAL: Moves all extremities. No gross deformities. No significant limited ROM of fingers. Approx 2cm linear horizontal laceration to R 3rd digit just proximal to PIP joint. No active bleeding. Sensation intact. Capillary refill intact. SKIN: Warm, dry, normal color. NEURO: A&O X3. Speech clear. PSYCHIATRIC: Appropriate mood and affect. Normal interaction. Course Vital Signs Vital signs: Vital Signs Pulse Rate 50 L 03/12/24 22:11 Respiratory Rate 20 03/12/24 22:11 Blood Pressure 131/79 03/12/24 22:11 Pulse Oximetry 98 03/12/24 22:11 Oxygen Delivery Room Air 03/12/24 22:11 Temperature 98.6 F 03/12/24 22:16 Pulse Rate 50 L 03/12/24 22:11 Respiratory Rate 20 03/12/24 22:11 Blood Pressure 131/79 03/12/24 22:11 Pulse Oximetry 98 03/12/24 22:11 Oxygen Delivery Room Air 03/12/24 22:11 Procedures Laceration Laceration 1: Date: 03/12/24 Time: 23:30 Site: hand Side (If applicable): right (3rd digit) Size (cm): 2 Description: linear Depth: simple, single layer Local Anesthetic: other anesthetic (digital block) Pre-repair: wound explored and irrigated ====== Skin Level ====== Skin layer closed with: nylon Size (cm): 4-0 Number of sutures: 4 Technique: simple, interrupted ====== Subcutaneous Layer ====== ====== Muscle Layer ====== ====== Tendon Layer ====== Nerve Block Nerve Block 1: Nerve block date: 03/12/24 Nerve block time: 23:15 Time out performed: Yes
[2024-03-12] MEDS: LIDOCAINE HCL 1% LOCAL INJ 10 ML VIAL 5 ML INFILTRATE (23:45)
== END 2024-03-12 23:52 | disposition home or self-care (01) ==
PROVIDERS: Emergency Provider Physician Assistant; PCP Family Medicine
DX: S61.212A Laceration without foreign body of right middle finger without damage to nail, initial encounter (principal); W26.0XXA Contact with knife, initial encounter; F41.9 Anxiety disorder, unspecified; J45.909 Unspecified asthma, uncomplicated; Z23 Encounter for immunization
CPT/HCPCS: 12001; 73140; 90471; 90715; 99283

== ENCOUNTER 2024-05-22 11:42 | Emergency (ER) | payer BC, SELFPAY ==
--- NOTE | 2024-05-22 11:44 | ED.URI ---
HPI - URI/Sore Throat General Chief Complaint: Upper Respiratory Infection Stated Complaint: SORE THROAT/CONGESTION/COUGH Time Seen by Provider: 05/22/24 12:10 Source: patient and RN notes reviewed Mode of arrival: ambulatory Limitations: no limitations History of Present Illness HPI Narrative: 38-year-old male presents with concern for 4 day history of nasal congestion, sore throat, deep burning cough. He reports he schedule have a tonsillectomy on Friday for chronic sinusitis and tonsil stones. He denies fever, body aches, chills, sweats. Reports he used Afrin for 2 days MD elicited complaint: cough, sore throat and nasal congestion Related Data Home Medications Medication Instructions Recorded Confirmed citalopram 10 mg tablet 10 mg PO HS 07/19/22 05/22/24 Allergies Allergy/AdvReac Type Severity Reaction Status Date / Time acetaminophen [From Percocet] Allergy Itching Verified 05/22/24 11:57 oxycodone [From Percocet] Allergy Itching Verified 05/22/24 11:57 sulfamethoxazole Allergy Rash Verified 05/22/24 11:57 [From Bactrim] trimethoprim [From Bactrim] Allergy Rash Verified 05/22/24 11:57 Review of Systems Review of Systems: CONSTITUTIONAL: Denies malaise, chills, sweats, or fever. EYES: Denies visual changes, redness, or discharge. ENT: Reports rhinorrhea, congestion, sinus pain, and sore throat. CARDIOVASCULAR: Denies chest pain, palpitations, or edema. RESPIRATORY: Reports deep burning cough. Denies dyspnea. GASTROINTESTINAL: Denies abdominal pain, nausea, vomiting, diarrhea SKIN: Denies rash or itching. MUSCULOSKELETAL: Denies myalgia. NEUROLOGIC: Denies headache. All systems reviewed & are unremarkable except as noted in HPI and below PMFSH Past Medical History Medical History Anxiety Asthma Diverticulitis Kidney stones Surgical History Surgical History History of surgery on arm Family History Family History Father Brain cancer Social History Social History Smoking status: Never smoker Alcohol intake: current Alcohol use details: RARE Substance use: never Substance use type: does not use Living arrangements: with family Occupation/Education: occupation Gender identity (if verbalized by the patient): Male Spiritual care concerns: No Comments At time of signature, agree with nursing past medical, surgical, social and family history. There is no relevant family history pertinent to the presenting complaint Exam Narrative: GENERAL: Well-appearing, well-nourished, and in no acute distress. HEAD: Normocephalic EYES: PERRLA, conjunctivae clear ENT: Nares clear, turbinates edematous and erythematous, clear discharge. Mucous membranes moist. TM pearly akers with dull light reflex bilaterally; no tragal tenderness. Oropharynx not erythematous without lesions. Tonsils not enlarged and without exudate, no drooling, no hoarseness, no trismus, uvula midline. NECK: Supple. No lymphadenopathy CHEST: Clear to auscultation, breath sounds equal. No wheezing, rhonchi, rales, or stridor. No respiratory distress, speaks in full sentences. HEART: Regular rate and rhythm. No murmur heard. SKIN: Warm, dry, no rash. NEURO: Alert and oriented x3. PSYCH: Normal mood and affect Course Course Emergency Course: Patient is aware of diagnosis, understands and agrees to treatment plan. Anticipatory guidance given. Patient agrees to follow-up as directed and is aware of reasons to seek care at the emergency department. Portions of this record may have been created with voice recognition software Level of Care: Express Care Visit Vital Signs Vital signs: Reviewed. MDM - URI/Sore Throat MDM Narrative Medical decision making narrative: Diff
[2024-05-22 12:04] VITALS: BP 126/89; PULSE 64; RESP 16; TEMP 36.9; O2SAT 99
[2024-05-22 12:13] LABS: EDSTREPNEGPOS1 Presumptive Negative
== END 2024-05-22 12:25 | disposition home or self-care (01) ==
PROVIDERS: Emergency Provider Nurse Practitioner; PCP Family Medicine
DX: J06.9 Acute upper respiratory infection, unspecified (principal); R05.9 Cough, unspecified; J45.909 Unspecified asthma, uncomplicated; F41.9 Anxiety disorder, unspecified
CPT/HCPCS: 87081; 87880; 99213; G0463